=== PATIENT | female | born 1955 | race Caucasian/White ===

== ENCOUNTER 2016-11-06 19:28 | Emergency (ER) | payer SELFPAY ==
[2016-11-06 19:34] VITALS: BP 147/86; PULSE 75; TEMP 98.6; BMI 27.8
--- NOTE | 2016-11-06 20:32 | PDOC ---
Attending Attestation - Resident Resident Name: Harriet Kelley - HPI HPI: 11/06/16 20:32 Pt comes with RUQ x 2 days. Afebrile. No N/V/D - Physicial Exam PE: 11/07/16 05:50A Pt has abd pain. She comes with flank pain. She has hematuria, but states that she always has blood in her urine, as per PMD, and she has no dysuria. Pt has no sign of UTI. Her RUQ pain was investigated with sonogram. She has normal sono. Fatty liver. Pt will be asked to follow with PMD. - Medical Decision Making 11/06/16 20:32 We will check basic labs and RUQ sono, as well as EKG and treat with saline and analgesics.
[2016-11-06 20:46] LABS: URINE APPEARANCE CLEAR; URINE BILIRUBIN NEGATIVE (NEGATIVE); URINE BLOOD 3+ (NEGATIVE); URINE COLOR LT. YELLOW; URINE GLUCOSE (UA) NEGATIVE (NEGATIVE); URINE KETONE NEGATIVE (NEGATIVE); URINE LEUK ESTERASE NEGATIVE (NEGATIVE); URINE NITRITE NEGATIVE (NEGATIVE); URINE PROTEIN NEGATIVE (NEGATIVE); URINE UROBILINOGEN 0.2 mg/dL (0.2-1.0)
[2016-11-06 20:47] LABS: BASOPHIL 0.6 % (0-2.0); EOSINOPHIL 5.7 % (0-4.5); MCH 31.4 pg (25.7-33.7); MCHC 34.5 g/dl (32.0-36.0); MEAN PLT VOLUME 9.9 fl (7.5-11.1); NEUTROPHILS 61.7 % (42.8-82.8); PLATELET COUNT 186 K/MM3 (134-434); RDW 12.9 % (11.6-15.6); WHITE BLOOD COUNT 7.8 K/mm3 (4.0-10.0)
--- NOTE | 2016-11-06 20:49 | PDOC ---
History of Present Illness - General Chief Complaint: Pain, Acute Stated Complaint: PAIN, ACUTE Time Seen by Provider: 11/06/16 19:58 History Source: Patient Exam Limitations: No Limitations - History of Present Illness Initial Comments: This is a 61 YOF with h/o chronic back pain and headaches who p/w RUQ abdominal pain for the past three days. She notes the pain is 10/10, constant, fees sharp , and is radiating to her left flank. It worsens with walking and improves with extra-strength Tylenol, her last dose of which was 5 pm today. She has never had pain like this before. She additionally notes urinary frequency, mild dizziness, and mild chills lately. She struggles with chronic back pain and headaches which are unchanged. She denies any fever, burning on urination, blood in the urine, fever, nausea, vomiting, diarrhea, constipation (last BM this AM), cough, sore throat, runny nose, incontinence of bowel or bladder, or new numbness, tingling, focal weakness, difficulty walking or balancing, vision changes, or other symptoms. 11/06/16 22:57 Past History - Past Medical History Allergies/Adverse Reactions: Allergies Allergy/AdvReac Type Severity Reaction Status Date / Time Penicillins Allergy Verified 11/06/16 19:34 Home Medications: Ambulatory Orders NK [No Known Home Medication] 11/06/16 Other medical history: chronic lower back pain - Psycho/Social/Smoking Cessation Hx Suicidal Ideation: No Smoking History: Never smoked Review of Systems - Review of Systems Constitutional: Yes: Chills. No: Fever, Unexplained wgt Loss HEENTM: No: Blurred Vision, Recent change in vision, Nose Congestion, Throat Pain Respiratory: No: Cough, Shortness of Breath Cardiac (ROS): No: Chest Pain, Palpitations ABD/GI: Yes: Other (abdominal pain). No: Constipated, Diarrhea, Nausea, Vomiting : Yes: Frequency. No: Burning, Dysuria, Incontinence Musculoskeletal: Yes: Back Pain (chronic). No: Neck Pain Integumentary: No: Bruising, Rash Neurological: Yes: Headache (chronic), Dizziness. No: Numbness, Tingling, Weakness Endocrine: No: Unexplained Weight Gain, Unexplained Weight Loss *Physical Exam - Vital Signs Last Vital Signs Temp Pulse Resp BP Pulse Ox 98.6 F 75 18 147/86 99 11/06/16 19:31 11/06/16 19:31 11/06/16 19:31 11/06/16 19:31 11/06/16 19:31 - Physical Exam General Appearance: Yes: Nourished, Appropriately Dressed, Other (non-obese, nontoxic appearing, Kazakh speaking only, pleasant and conversive and answering questions appropriately). No: Apparent Distress HEENT: positive: EOMI, Normal Voice, Hearing Grossly Normal. negative: Scleral Icterus (R), Scleral Icterus (L), Nasal Congestion Neck: positive: Trachea midline, Supple. negative: Tender, Rigid Respiratory/Chest: positive: Lungs Clear, Normal Breath Sounds. negative: Respiratory Distress, Crackles, Rhonchi, Stridor, Wheezing Cardiovascular: positive: Regular Rhythm, Regular Rate. negative: Murmur Gastrointestinal/Abdominal: positive: Normal Bowel Sounds, Tender (RUQ mild tenderness to palpation, positive Weldon's sign, minimal RLQ and epigastric tenderness to palpation, otherwise nontender), Soft. negative: Organomegaly, Pulsatile Mass, Guarding Musculoskeletal: positive: Normal Inspection. negative: CVA Tenderness, Decreased Range of Motion, Vertebral Tenderness Extremity: positive: Normal Capillary Refill, Normal Inspection, Normal Range of Motion. negative: Tender, Cyanosis Integumentary: positive: Normal Color, Dry, Warm. negative: Erythema, Rash, Bruising Neurologic: positive: feather baler II-XII NML intact, Fully Oriented, Alert, Normal Mood/ Affect, Normal Response, Motor Strength 5/5 Heart Score/ECG Review #1 ECG reviewed & interpreted by me at: 20:55 Sinus rhythm, rate of 62, normal axis and intervals, no ST-T changes. ED Treatment Course - LABORATORY CBC & Chemistry Diagram: 11/06/16 20:30 11/06/16 20:30 Medical Decision Making - Medical Decision Making 61 YOF with h/o chronic back pain and headaches who p/w RUQ abdominal pain for the past 3 days. Abdominal exam with tenderness to palpation of RUQ and also mild ttp RLQ. DDX includes cholecystitis, appendicitis, pancreatitis, renal stone, constipation, gas, etc. Ordered is CBCD, CMP, lipase, amylase, UA, EKG, US RUQ. Lab work returns without significant abnormality, lipase, amylase are normal. UA with small amount of blood could suggest renal stone. However US GB and right kidney without abnormality. EKG is normal. Most likely this is gas/constipation. Patient will follow up with her PCP or return to ED for new/worse sxs. *DC/Admit/Observation/Transfer Diagnosis at time of Disposition: Abdominal pain Qualifiers: Abdominal location: right upper quadrant Qualified Code(s): R10.11 - Right upper quadrant pain - Discharge Dispostion Disposition: HOME Condition at time of disposition: Stable Admit: No - Patient Instructions Printed Discharge Instructions: DI for Abdominal Pain-Adult Additional Instructions: You were seen today for abdominal pain. We did blood work and a urine analysis which were normal except you had a small amount of blood in the urine. This sometimes can indicate a kidney stone, but not always. We did an ultrasound of the gallbladder and kidneys and found no abnormalities. Please follow up with your regular doctor, or return to the ED for any new or worsening symptoms like severe pain, fever, vomiting, or other symptoms. Use [id number] pain medications.
[2016-11-06 21:00] LABS: INR 1.04 (0.82-1.09); PROTHROMBIN TIME (PATIENT) 11.5 SEC (9.98-11.88); URINE MUCUS RARE; URINE RBC 10 /hpf (0-3); URINE WBC 2 /hpf (3-5)
[2016-11-06 21:17] LABS: ALBUMIN 3.5 g/dl (3.4-5.0); ALK PHOS 110 U/L (45-117); AMYLASE 55 U/L (25-115); ANION GAP 9 (8-16); BILIRUBIN,TOTAL 0.3 mg/dL (0.2-1.0); CALCIUM 8.9 mg/dL (8.5-10.1); CO2 25 mmol/L (21-32); CREATININE 0.7 mg/dL (0.55-1.02); GLUCOSE,RANDOM 95 mg/dL (74-106); SGOT/AST 16 U/L (15-37); SGPT/ALT 18 U/L (12-78); TOT PROT 7.5 g/dl (6.4-8.2)
[2016-11-06] MEDS ORDERED: IBUPROFEN 600 MG TABLET (FP) PO ONE ×2 (22:48→22:50)
--- NOTE | 2016-11-07 11:44 | EKG ---
Test Reason : Blood Pressure : / mmHG Vent. Rate : 062 BPM Atrial Rate : 062 BPM P-R Int : 134 ms QRS Dur : 078 ms QT Int : 406 ms P-R-T Axes : 024 -02 043 degrees QTc Int : 412 ms NORMAL SINUS RHYTHM MINIMAL VOLTAGE CRITERIA FOR LVH, MAY BE NORMAL VARIANT BORDERLINE ECG NO PREVIOUS ECGS AVAILABLE CLINICAL CORRELATION IS RECOMMENDED Confirmed by NEHEMIAS GONSALEZ MD ([id number]) on 11/07/2016 11:44:27 AM Referred By: Confirmed By:NEHEMIAS GONSALEZ MD
== END 2016-11-06 23:01 | disposition home or self-care (01) ==
LOC: JER 19:28
DX: R10.11 Right upper quadrant pain (principal)
CPT/HCPCS: 36415; 76705-TC; 80053; 81003; 81015; 82150; 83690; 85025; 85610; 93005; 93010; 99281-25